=== PATIENT | male | born 1970 | race African-American/Black ===

== ENCOUNTER 2017-10-31 16:43 | Emergency (ER) | payer OTHER ==
[2017-10-31 16:49] VITALS: BP 122/71
[2017-10-31] MEDS ORDERED: clonazePAM TAB(*) 1 MG PO ONE (17:47)
[2017-10-31] MEDS ORDERED: clonazePAM TAB(*) 0.5 MG PO ONE (18:00)
--- NOTE | 2017-10-31 18:14 | ED ---
Dayday Landry Natalie, scribed for Jose Hunt MD on 10/31/17 at 1753 . Medical Screening - HPI Summary HPI Summary: The pt is a 47 y/o M presenting to the ED c/o needing Klonopin refill starting today. The patient usually takes 1 mg once a night. He was prescribed the medication by a doctor in [place], where he used to live up until September. Pt additionally c/o insomnia when he's not able to take his medication. He last took the medication last night. He does not smoke. He doesnt have a hx of HTN or diabetes. - History of Current Complaint Chief Complaint: EDGeneral Stated Complaint: MED REFILL Time Seen by Provider: 10/31/17 17:36 Onset/Duration: Started Hours Ago - starting last night Severity: mild Associated Signs and Symptoms: Other - insomnia PMH/Surg Hx/FS Hx/Imm Hx Previously Healthy: No Endocrine/Hematology History: Denies: Hx Diabetes Cardiovascular History: Denies: Hx Hypertension Opthamlomology History: Denies: Hx Legally Blind EENT History: Denies: Hx Deafness Psychiatric History: Reports: Hx Anxiety Infectious Disease History: No Infectious Disease History: Denies: Traveled Outside the [place] in Last 30 Days - Family History Known Family History: Positive: Diabetes Negative: Hypertension Review of Systems Negative: Fever Neurological: Other - insomnia All Other Systems Reviewed And Are Negative: Yes Physical Exam Triage Information Reviewed: Yes Vital Signs On Initial Exam: Initial Vitals Temp Pulse Resp BP Pulse Ox 98.7 F 64 16 122/71 100 10/31/17 16:46 10/31/17 16:46 10/31/17 16:46 10/31/17 16:46 10/31/17 16:46 Vital Signs Reviewed: Yes Appearance: Positive: Well-Appearing, No Pain Distress Skin: Positive: Warm, Skin Color Reflects Adequate Perfusion, Dry Head/Face: Positive: Normal Head/Face Inspection Eyes: Positive: EOMI, ELIO ENT: Positive: Normal ENT inspection Neck: Positive: Supple, Nontender Respiratory/Lung Sounds: Positive: Clear to Auscultation, Breath Sounds Present Cardiovascular: Positive: RRR, Pulses are Symmetrical in both Upper and Lower Extremities Abdomen Description: Positive: Nontender, Soft Bowel Sounds: Positive: Present Musculoskeletal: Positive: Normal, Strength/ROM Intact Neurological: Positive: Normal, Sensory/Motor Intact, Alert, Oriented to Person Place, Time Diagnostics - Vital Signs Vital Signs Temp Pulse Resp BP Pulse Ox 10/31/17 16:46 98.7 F 64 16 122/71 100 - Laboratory Lab Statement: Any lab studies that have been ordered have been reviewed, and results considered in the medical decision making process. Course/Dx - Course Course Of Treatment: pt on chronic benzo. Out of meds despite confirming he hasnt filled since August. Has been taking more lately (using at bedtime prn), but no evidence for withdrawl. Dosed here. Short course given after accessing [facility] to get him thru weekend. PMD referral service provided. - Diagnoses Provider Diagnoses: Depression, Anxiety, Medication refill Discharge - Discharge Plan Condition: Good Disposition: HOME Prescriptions: clonazePAM TAB(*) [KlonoPIN TAB(*)] 0.5 mg PO BEDTIME PRN #3 tab MDD 1 PRN Reason: Anxiety Referrals: [facility] [Outside] Additional Instructions: Call for a physician as soon as possible. You will need a primary care doctor to prescribe this medication after the weekend. Return if worse, new symptoms or other concerns as discussed. Medication cannot be filled out of the ER. The documentation as recorded by the Dayday cervantes Natalie accurately reflects the service I personally performed and the decisions made by me, Jose Hunt MD.
== END 2017-10-31 18:10 | disposition home or self-care (01) ==
LOC: ED 16:43
DX: F41.8 Other specified anxiety disorders (principal)
CPT/HCPCS: 99281; A9270-GY

== ENCOUNTER 2017-11-04 14:05 | Emergency (ER) | payer OTHER ==
[2017-11-04 16:24] VITALS: BP 105/61
--- NOTE | 2017-11-04 18:29 | ED ---
Medical Screening - HPI Summary HPI Summary: 47M presents for klonopin refill. He states he is setting up a primary here and that his first appointment is not till next is the earliest he can get in. He states that he is originally from [facility] and moved here in Sep. He is prescribed the medication for insomnia and states he has to take it every night. He has been on the medication for years. He denies any abdominal pain, n/v or other symptoms. He was seen here 3 days ago and given a 3 days course of the medication till he can see a primary. He states that he had been decreasing the amount he was taking between aug and sep so that it lasted longer. - History of Current Complaint Chief Complaint: EDPrescriptionNeeded Stated Complaint: MEDICATION REFILL Time Seen by Provider: 11/04/17 17:39 PMH/Surg Hx/FS Hx/Imm Hx Endocrine/Hematology History: Denies: Hx Diabetes Cardiovascular History: Denies: Hx Hypertension Sensory History: Denies: Hx Legally Blind, Hx Deafness Opthamlomology History: Denies: Hx Legally Blind Psychiatric History: Reports: Hx Anxiety Infectious Disease History: No Infectious Disease History: Denies: Traveled Outside the US in Last 30 Days - Family History Known Family History: Positive: Diabetes Negative: Hypertension - Social History Alcohol Use: None Substance Use Type: Reports: None Smoking Status (MU): Never Smoked Tobacco Review of Systems Negative: Fever Negative: Chest Pain Negative: Shortness Of Breath All Other Systems Reviewed And Are Negative: Yes Physical Exam Triage Information Reviewed: Yes Vital Signs On Initial Exam: Initial Vitals Temp Pulse Resp BP Pulse Ox 98.6 F 62 20 116/64 99 11/04/17 14:12 11/04/17 14:12 11/04/17 14:12 11/04/17 14:12 11/04/17 14:12 Vital Signs Reviewed: Yes Appearance: Positive: Well-Appearing Skin: Positive: Warm, Dry Head/Face: Positive: Normal Head/Face Inspection Eyes: Positive: Normal, Conjunctiva Clear Respiratory/Lung Sounds: Positive: Clear to Auscultation, Breath Sounds Present Cardiovascular: Positive: Normal, RRR Musculoskeletal: Positive: Normal Neurological: Positive: Normal Psychiatric: Positive: Normal Diagnostics - Vital Signs Vital Signs Temp Pulse Resp BP Pulse Ox 11/04/17 16:15 98.9 F 56 20 105/61 100 11/04/17 14:12 98.6 F 62 20 116/64 99 - Laboratory Lab Statement: Any lab studies that have been ordered have been reviewed, and results considered in the medical decision making process. Course/Dx - Course Course Of Treatment: 47M presents for klonopin refill. He states he is setting up a primary here and that his first appointment is not till next is the earliest he can get in. He states that he is originally from [facility] and moved here in Sep. He is prescribed the medication for insomnia and states he has to take it every night. He has been on the medication for years. He denies any abdominal pain, n/v or other symptoms. He was seen here 3 days ago and given a 3 days course of the medication till he can see a primary. He states that he had been decreasing the amount he was taking between aug and sep so that it lasted longer. discussed with patient that the ER can not be used for fill chronic narcotic medication needs to be filled by a primary. due to patient being on medication for a long time will prescribe 6 days so get to the appointment. patient understand and agrees with plan. - Diagnoses Provider Diagnoses: Medication refill Discharge - Discharge Plan Condition: Good Disposition: HOME Prescriptions: clonazePAM TAB(*) [KlonoPIN TAB(*)] 0.5 mg PO BID PRN #6 tab MDD 2 PRN Reason: Anxiety Referrals: Lobito Fuller MD [Primary Care Provider] - Additional Instructions: Call daily to try and get appointment moved up. Note that this medication is a control substance and cannot be filled out of the ER. Return to ED if develop any new or worsening symptoms
== END 2017-11-04 19:13 | disposition home or self-care (01) ==
LOC: ED 14:05
DX: Z76.0 Encounter for issue of repeat prescription (principal)
CPT/HCPCS: 99282

== ENCOUNTER 2017-12-16 17:49 | Emergency (ER) | payer OTHER ==
[2017-12-16 18:04] VITALS: BP 106/65
--- NOTE | 2017-12-16 19:32 | ED ---
Throat Pain/Nasal Congestion - HPI Summary HPI Summary: Throat pain for 1 year---but for the past 3 days something has been different was seen at the [facility] and started on flonase yesterday without any change yet--reports the discomfort as a flaming feeling---and notes a lot of stomach acid - History of Current Complaint Chief Complaint: EDThroatPain Time Seen by Provider: 12/16/17 19:31 Hx Obtained From: Patient Onset/Duration: Gradual Onset, Worse Since - past 3 days Severity: Moderate Associated Signs And Symptoms: Positive: Nasal Discharge Cough: None Related History: Seasonal Allergies - Allergies/Home Medications Allergies/Adverse Reactions: Allergies Allergy/AdvReac Type Severity Reaction Status Date / Time No Known Allergies Allergy Verified 11/04/17 14:15 PMH/Surg Hx/FS Hx/Imm Hx Endocrine/Hematology History: Denies: Hx Diabetes Cardiovascular History: Denies: Hx Hypertension Sensory History: Denies: Hx Legally Blind, Hx Deafness Opthamlomology History: Denies: Hx Legally Blind Psychiatric History: Reports: Hx Anxiety - Cancer History Hx Hematologic Symptoms: No Hx Chemotherapy: No Hx Radiation Therapy: No Hx Palliative Cancer Treatment: No - Surgical History Hx Anesthesia Reactions: No - Immunization History Hx Pertussis Vaccination: No Infectious Disease History: No Infectious Disease History: Denies: Traveled Outside the [place] in Last 30 Days - Family History Known Family History: Positive: Diabetes Negative: Hypertension - Social History Occupation: Unemployed Lives: With Family Alcohol Use: None Substance Use Type: Reports: None Hx Tobacco Use: No Smoking Status (MU): Never Smoked Tobacco Review of Systems Constitutional: Negative Eyes: Negative Positive: Sore Throat, Nasal Discharge Cardiovascular: Negative Respiratory: Negative Gastrointestinal: Other Positive: Other - acid reflux Genitourinary: Negative Musculoskeletal: Negative Skin: Negative Neurological: Negative Psychological: Normal All Other Systems Reviewed And Are Negative: Yes Physical Exam Triage Information Reviewed: Yes Vital Signs On Initial Exam: Initial Vitals Temp Pulse Resp BP Pulse Ox 98.5 F 66 16 106/65 100 12/16/17 18:00 12/16/17 18:00 12/16/17 18:00 12/16/17 18:00 12/16/17 18:00 Vital Signs Reviewed: No Appearance: Positive: Well-Appearing, No Pain Distress, Well-Nourished Skin: Positive: Warm, Skin Color Reflects Adequate Perfusion, Dry Head/Face: Positive: Normal Head/Face Inspection Eyes: Positive: Normal, EOMI, ELIO, Conjunctiva Clear ENT: Positive: Normal ENT inspection, Hearing grossly normal, Pharynx normal, Nasal congestion, Nasal drainage, TMs normal, Uvula midline. Negative: Tonsillar swelling, Tonsillar exudate, Trismus, Muffled voice, Hoarse voice, Dental tenderness, Sinus tenderness Neck: Positive: Supple, Nontender, No Lymphadenopathy Respiratory/Lung Sounds: Positive: Clear to Auscultation, Breath Sounds Present. Negative: Unable to speak in full sentences Cardiovascular: Positive: Normal, RRR, Pulses are Symmetrical in both Upper and Lower Extremities, S1, S2 Abdomen Description: Positive: Nontender, No Organomegaly, Soft. Negative: CVA Tenderness (R), CVA Tenderness (L) Bowel Sounds: Positive: Present Musculoskeletal: Positive: Normal, Strength/ROM Intact Neurological: Positive: Normal, Sensory/Motor Intact, Alert, Oriented to Person Place, Time, CN Intact II-III Psychiatric: Positive: Normal, Affect/Mood Appropriate AVPU Assessment: Alert - [place] Coma Scale Best Eye Response: 4 - Spontaneous Best Motor Response: 6 - Obeys Commands Best Verbal Response: 5 - Oriented Coma Scale Total: 15 Diagnostics - Vital Signs Vital Signs Temp Pulse Resp BP Pulse Ox 12/16/17 18:00 98.5 F 66 16 106/65 100 - Laboratory Lab Statement: Any lab studies that have been ordered have been reviewed, and results considered in the medical decision making process. - Radiology No standard instances Xray Interpretation: Positive (See Comments) - mild degenerative changes in cervical spine Radiology Interpretation Completed By: Radiologist EENT Course/Dx - Course Assessment/Plan: soft diet,, prilosec follow with pcp, return for worsening symptoms - Diagnoses Provider Diagnoses: GERD (gastroesophageal reflux disease) Discharge - Discharge Plan Condition: Stable Disposition: HOME Prescriptions: Omeprazole CAP* [Prilosec CAP* 20 MG] 20 mg PO DAILY #30 cap. Patient Education Materials: Diet for Stomach Ulcers and Gastritis (ED), Gastroesophageal Reflux Disease (ED), Esophageal Spasm (ED) Referrals: Lobito Fuller MD [Primary Care Provider] - 5 Days
[2017-12-16] MEDS ORDERED: Al Hydrox/Mg Hydrox/Simet LIQ* 30 ML UDC PO ONE (19:45)
[2017-12-16] MEDS ORDERED: Lidocaine 2% VISCOUS* 15 ML UDC PO ONE (19:45)
--- NOTE | 2017-12-16 22:15 | RAD ---
Indication: Sore throat Comparison: None. Technique: AP and lateral views of the neck with soft tissue technique. Report: Unremarkable soft tissue contours. Pharyngeal, laryngeal, and tracheal air columns are normal in contour. The epiglottis is normal. The cervical spine and prevertebral soft tissues are normal. Degenerative change of the cervical spine includes shortening of the C5 vertebral body and narrowing of the C5/C6 intervertebral disc space. IMPRESSION: Degenerative change of the cervical spine without radiographically apparent acute soft tissue abnormality. If the patient's symptoms persist, follow-up imaging is recommended.
== END 2017-12-16 22:39 | disposition home or self-care (01) ==
LOC: ED 17:49
DX: K21.9 Gastro-esophageal reflux disease without esophagitis (principal)
CPT/HCPCS: 70360; 87651; 99282; A9270-GY

== ENCOUNTER 2017-12-24 14:42 | Emergency (ER) | payer OTHER ==
[2017-12-24 14:48] VITALS: BP 100/69
--- NOTE | 2017-12-24 15:52 | ED ---
Phyllis Landry Julia, scribed for Sebastian Donohue on 12/24/17 at 1503 . Respiratory - HPI Summary HPI Summary: This patient is a 47 year old M presenting to [facility] with a chief complaint of gradually worsening cough and fluid build-up for the past two weeks. Patient denies coughing blood, abdominal pain, chest pain, and SOB. Symptoms unchanged by exertion. He states he has been spitting clear phlegm. - History of Current Complaint Chief Complaint: EDGeneral Stated Complaint: COUGH Time Seen by Provider: 12/24/17 14:56 Hx Obtained From: Patient Onset/Duration: Lasting Weeks, Still Present Timing: Constant Pain Intensity: 0 Character: Cough (Productive) Sputum Amount: Copious - spitting up Sputum Color: White Aggravating Factor(s): Nothing Alleviating Factor(s): Nothing - Allergy/Home Medications Allergies/Adverse Reactions: Allergies Allergy/AdvReac Type Severity Reaction Status Date / Time No Known Allergies Allergy Verified 11/04/17 14:15 PMH/Surg Hx/FS Hx/Imm Hx Endocrine/Hematology History: Denies: Hx Diabetes Cardiovascular History: Denies: Hx Hypertension Musculoskeletal History: Reports: Hx Arthritis Sensory History: Denies: Hx Legally Blind, Hx Deafness Opthamlomology History: Denies: Hx Legally Blind Psychiatric History: Reports: Hx Anxiety - Cancer History Hx Hematologic Symptoms: No Hx Chemotherapy: No Hx Radiation Therapy: No Hx Palliative Cancer Treatment: No - Surgical History Hx Anesthesia Reactions: No Infectious Disease History: No Infectious Disease History: Denies: Traveled Outside the [place] in Last 30 Days - Family History Known Family History: Positive: Diabetes Negative: Hypertension - Social History Alcohol Use: None Substance Use Type: Reports: None Hx Tobacco Use: No Smoking Status (MU): Never Smoked Tobacco Review of Systems Negative: Chest Pain Respiratory: Negative - cough with blood, Other - spitting phlegm Positive: Cough. Negative: Shortness Of Breath Negative: Abdominal Pain All Other Systems Reviewed And Are Negative: Yes Physical Exam - Summary Physical Exam Summary: Appearance: Well appearing, no pain distress Skin: warm, dry, reflects adequate perfusion Head/face: normal Eyes: EOMI, ELIO ENT: normal Neck: supple, non-tender Respiratory: CTA, breath sounds present Cardiovascular: RRR, pulses symmetrical Abdomen: non-tender, soft Bowel: present Musculoskeletal: normal, strength/ROM intact Neuro: normal, sensory motor intact, A&Ox3 Triage Information Reviewed: Yes Vital Signs On Initial Exam: Initial Vitals Temp Pulse Resp BP Pulse Ox 98.8 F 69 18 100/69 97 12/24/17 14:45 12/24/17 14:45 12/24/17 14:45 12/24/17 14:45 12/24/17 14:45 Vital Signs Reviewed: Yes Diagnostics - Vital Signs Vital Signs Temp Pulse Resp BP Pulse Ox 12/24/17 14:45 98.8 F 69 18 100/69 97 - Laboratory Lab Statement: Any lab studies that have been ordered have been reviewed, and results considered in the medical decision making process. Disposition - Course Course Of Treatment: Patient presents with cough and increaed phlegm production for the past two weeks. Patient denies chest pain, SOB, and coughing blood. Patient is given a prescription for Amoxycillin. - Diagnoses Provider Diagnoses: Pharyngitis Discharge - Discharge Plan Condition: Stable Disposition: HOME Prescriptions: Amoxicillin PO (*) [Amoxicillin 875 MG (*)] 875 mg PO BID #20 tab Patient Education Materials: Pharyngitis (ED) Referrals: Preston Holland MD [Medical Doctor] - If Needed Additional Instructions: Follow up with an ENT (ears, nose, throat) physician if your symptoms do not improve. A physician's information is provided if needed. The documentation as recorded by the Phyllis cervantes Julia accurately reflects the service I personally performed and the decisions made by , Sebastian Donohue.
== END 2017-12-24 15:43 | disposition home or self-care (01) ==
LOC: ED 14:42
DX: J02.9 Acute pharyngitis, unspecified (principal); R05 Cough; M19.90 Unspecified osteoarthritis, unspecified site; F41.9 Anxiety disorder, unspecified
CPT/HCPCS: 99281

== ENCOUNTER 2017-12-26 13:29 | Emergency (ER) | payer OTHER ==
--- NOTE | 2017-12-26 15:30 | RAD ---
INDICATION: Cough and mucus, evaluate for pneumonia on the right side. COMPARISON: There are no prior studies available for comparison. TECHNIQUE: Dual-energy PA and lateral views of the chest were obtained. FINDINGS: The heart is within normal limits in size. Mediastinal and hilar contours appear within normal limits. The lungs are hyperinflated and clear. No pleural effusion is present. IMPRESSION: NO EVIDENCE FOR ACTIVE CARDIOPULMONARY DISEASE.
--- NOTE | 2017-12-26 15:39 | ED ---
Throat Pain/Nasal Congestion - HPI Summary HPI Summary: 47 male presents to ED with complaints of excessive mucus production that has been ongoing for the past week or so. Was seen a few days ago and given amoxicillin. Patient was worried since the congestion/phlegm worsened that it was a medication side effect. Patient denies any blood/hemoptysis. No fever/ chills or headache. Admits to having sinus complications in the past. Admits to nasal congestion. Was using flonase however stopped. Admits to productive cough. No PMHx. Recently also had soft tissue neck xray without findings. - History of Current Complaint Chief Complaint: EDGeneral Time Seen by Provider: 12/26/17 13:51 Hx Obtained From: Patient Onset/Duration: Gradual Onset, Lasting Weeks, Still Present, Worse Since Severity: Moderate Associated Signs And Symptoms: Positive: Dysphagia, Sinus Discomfort, Nasal Discharge Cough: Productive - Epiglottits Risk Factors Epiglottis Risk Factors: Negative - Allergies/Home Medications Allergies/Adverse Reactions: Allergies Allergy/AdvReac Type Severity Reaction Status Date / Time No Known Allergies Allergy Verified 12/26/17 13:37 PMH/Surg Hx/FS Hx/Imm Hx Endocrine/Hematology History: Denies: Hx Diabetes Cardiovascular History: Denies: Hx Hypertension Musculoskeletal History: Reports: Hx Arthritis Sensory History: Denies: Hx Legally Blind, Hx Deafness Opthamlomology History: Denies: Hx Legally Blind Psychiatric History: Reports: Hx Anxiety - Cancer History Hx Hematologic Symptoms: No Hx Chemotherapy: No Hx Radiation Therapy: No Hx Palliative Cancer Treatment: No - Surgical History Hx Anesthesia Reactions: No - Immunization History Immunizations Up to Date: Yes Infectious Disease History: No Infectious Disease History: Denies: Traveled Outside the [place] in Last 30 Days - Family History Known Family History: Positive: Diabetes Negative: Hypertension - Social History Alcohol Use: None Substance Use Type: Reports: None Hx Tobacco Use: No Smoking Status (MU): Never Smoked Tobacco Review of Systems Constitutional: Negative Positive: Sore Throat, Nasal Discharge Cardiovascular: Negative Positive: Cough, Other - mucus production Gastrointestinal: Negative All Other Systems Reviewed And Are Negative: Yes Physical Exam Triage Information Reviewed: Yes Vital Signs On Initial Exam: Initial Vitals Temp Pulse Resp BP Pulse Ox 98.7 F 67 20 107/59 100 12/26/17 13:34 12/26/17 13:34 12/26/17 13:34 02/23/18 13:34 12/26/17 13:34 Vital Signs Reviewed: Yes Appearance: Positive: Well-Appearing, No Pain Distress, Well-Nourished Skin: Positive: Warm, Skin Color Reflects Adequate Perfusion, Dry Head/Face: Positive: Normal Head/Face Inspection Eyes: Positive: Normal, Conjunctiva Clear ENT: Positive: Hearing grossly normal, Pharynx normal, Nasal congestion, TMs normal - with some serous effusion bl tm, Uvula midline - ariway patent no sign of peritonsillar abscess. Negative: Nasal drainage, Tonsillar swelling, Tonsillar exudate Dental: Negative: Cervical Lymphadenopathy Neck: Positive: Supple, Nontender, No Lymphadenopathy Respiratory/Lung Sounds: Positive: Clear to Auscultation, Breath Sounds Present. Negative: Rales, Rhonchi, Wheezes Cardiovascular: Positive: Normal, RRR, Pulses are Symmetrical in both Upper and Lower Extremities. Negative: Murmur, Rub, Leg Edema Left, Leg Edema Right Abdomen Description: Positive: Nontender, Soft Bowel Sounds: Positive: Present Musculoskeletal: Positive: Normal, Strength/ROM Intact Neurological: Positive: Normal, Sensory/Motor Intact, Alert, Oriented to Person Place, Time Diagnostics - Vital Signs Vital Signs Temp Pulse Resp BP Pulse Ox 12/26/17 13:34 98.7 F 67 20 107/59 100 - Laboratory Lab Statement: Any lab studies that have been ordered have been reviewed, and results considered in the medical decision making process. - Radiology chest Xray Interpretation: No Acute Changes - NO EVIDENCE FOR ACTIVE CARDIOPULMONARY DISEASE. Radiology Interpretation Completed By: Radiologist Re-Evaluation - Re-Evaluation First Eval Re-Evaluation Time: 15:15 Change: Unchanged - feeling ok, updated on chest xray results. educated on current plan and patient agrees/understands EENT Course/Dx - Course Course Of Treatment: chest xray obtained and negative. appears to be suffering from URI that moved from sinuses into chest. encouraged use of decongestant, flonase and saline rinses. also to try antihistamine. no other concerns at this time. follow up with pcp. aware of worsening signs and symptoms to watch out for and return if occur. normal vitals. normal physical exam. - Differential Diagnoses Differential Diagnoses: Pharyngitis, Sinusitis, URI/Bronchitis - Diagnoses Provider Diagnoses: URI (upper respiratory infection) Discharge - Discharge Plan Condition: Stable Disposition: HOME Patient Education Materials: Upper Respiratory Infection (ED) Referrals: Lobito Fuller MD [Primary Care Provider] - Additional Instructions: continue prescribed dose of amoxicillin. recommend take mucinex and claritin both sold over the counter to help with congestion. increase fluid intake and get plenty of rest. Flonase for nasal congestion. Hot showers and warm compresses. Nasal saline rinses. Follow up with PCP.
[2017-12-26 16:11] VITALS: BP 97/59
== END 2017-12-26 16:10 | disposition home or self-care (01) ==
LOC: ED 13:29
DX: J06.9 Acute upper respiratory infection, unspecified (principal)
CPT/HCPCS: 71046; 99281

== ENCOUNTER 2017-12-29 00:45 | Emergency (ER) | payer OTHER ==
[2017-12-29] MEDS ORDERED: Fluticasone NASAL SPRAY 50MCG* 16 gm SPRAY BTL BOTH NARES SCH (02:00)
[2017-12-29 02:02] VITALS: BP 0/0
--- NOTE | 2017-12-29 02:03 | ED ---
Catherien Landry Edward, scribed for Akilah Herrera MD on 12/29/17 at 0103 . Throat Pain/Nasal Congestion - HPI Summary HPI Summary: 47 y/o male presents to the ED c/o fluid backed up in his throat for around 1 month. Pt states he has trouble sleeping because of it. Sx not aggravated or alleviate by anything. Pt takes 0.5 mg Klonopin daily. Associated sx: rhinorrhea. - History of Current Complaint Chief Complaint: EDThroatPain Time Seen by Provider: 12/29/17 01:00 Hx Obtained From: Patient Onset/Duration: Lasting Weeks, Still Present Associated Signs And Symptoms: Positive: Nasal Discharge - Allergies/Home Medications Allergies/Adverse Reactions: Allergies Allergy/AdvReac Type Severity Reaction Status Date / Time No Known Allergies Allergy Verified 12/26/17 13:37 PMH/Surg Hx/FS Hx/Imm Hx Previously Healthy: No Endocrine/Hematology History: Denies: Hx Diabetes Cardiovascular History: Denies: Hx Hypertension Musculoskeletal History: Reports: Hx Arthritis Sensory History: Denies: Hx Legally Blind, Hx Deafness Opthamlomology History: Denies: Hx Legally Blind Psychiatric History: Reports: Hx Anxiety - Cancer History Hx Hematologic Symptoms: No Hx Chemotherapy: No Hx Radiation Therapy: No Hx Palliative Cancer Treatment: No - Surgical History Hx Anesthesia Reactions: No Infectious Disease History: No Infectious Disease History: Denies: Traveled Outside the [place] in Last 30 Days - Family History Known Family History: Positive: Diabetes Negative: Hypertension - Social History Alcohol Use: None Substance Use Type: Reports: None Hx Tobacco Use: No Smoking Status (MU): Never Smoked Tobacco Review of Systems Constitutional: Negative Eyes: Negative ENT: Other - "fluid backed up in his throat" Positive: Nasal Discharge Cardiovascular: Negative Respiratory: Negative Gastrointestinal: Negative Genitourinary: Negative Musculoskeletal: Negative Skin: Negative Neurological: Negative Psychological: Normal All Other Systems Reviewed And Are Negative: Yes Physical Exam - Summary Physical Exam Summary: VITAL SIGNS: Reviewed. GENERAL: Patient is a well-developed and nourished male who is lying comfortable in the stretcher. Patient is not in any acute respiratory distress. HEAD AND FACE: No signs of trauma. No ecchymosis, hematomas or skull depressions. No sinus tenderness. EYES: PERRLA, EOMI x 2, No injected conjunctiva, no nystagmus. EARS: Hearing grossly intact. Ear canals and tympanic membranes are within normal limits. MOUTH: Oropharynx within normal limits. NECK: Supple, trachea is midline, no adenopathy, no JVD, no carotid bruit, no c- spine tenderness, neck with full ROM. CHEST: Symmetric, no tenderness at palpation LUNGS: Clear to auscultation bilaterally. No wheezing or crackles. CVS: Regular rate and rhythm, S1 and S2 present, no murmurs or gallops appreciated. ABDOMEN: Soft, non-tender. No signs of distention. No rebound no guarding, and no masses palpated. Bowel sounds are normal. EXTREMITIES: FROM in all major joints, no edema, no cyanosis or clubbing. NEURO: Alert and oriented x 3. No acute neurological deficits. Speech is normal and follows commands. SKIN: Dry and warm Triage Information Reviewed: Yes Vital Signs On Initial Exam: Initial Vitals Temp Pulse Resp BP Pulse Ox 97.4 F 55 14 87/53 100 12/29/17 00:48 12/29/17 00:48 12/29/17 00:48 12/29/17 00:48 12/29/17 00:48 Vital Signs Reviewed: Yes Diagnostics - Vital Signs Vital Signs Temp Pulse Resp BP Pulse Ox 12/29/17 00:48 97.4 F 55 14 87/53 100 - Laboratory Lab Statement: Any lab studies that have been ordered have been reviewed, and results considered in the medical decision making process. Re-Evaluation - Re-Evaluation 1 Re-Evaluation Time: 01:55 EENT Course/Dx - Course Assessment/Plan: Pt will be d/c home with f/u with ENT. - Diagnoses Provider Diagnoses: Postnasal drip, Rhinitis Discharge - Discharge Plan Condition: Stable Disposition: HOME Patient Education Materials: Fluticasone (Into the nose), Postnasal Drip (DC) Referrals: Chema Linda MD [Medical Doctor] - 4 Days (PLEASE F/U IN 3-5 DAYS) Additional Instructions: PLEASE USE FLONASE NASAL SPRAY TWICE A DAY RETURN TO THE ED FOR THE RETURN OR WORSENING OF SYMPTOMS The documentation as recorded by the Catherine cervantes Edward accurately reflects the service I personally performed and the decisions made by Javier ivan Abdul, MD.
== END 2017-12-29 02:02 | disposition home or self-care (01) ==
LOC: ED 00:45
DX: R09.82 Postnasal drip (principal); J31.0 Chronic rhinitis
CPT/HCPCS: 99281

== ENCOUNTER 2018-03-21 15:35 | Emergency (ER) | payer OTHER ==
[2018-03-21 17:09] VITALS: BP 128/88
--- NOTE | 2018-03-21 17:10 | ED ---
Throat Pain/Nasal Congestion - HPI Summary HPI Summary: patient is a 47-year-old male with no significant PMH who presents to the ED for the fourth time over the 3 months with same complaint of postnasal drip and mucus in the throat. He states when he is able to cough up the mucus, it is clear. He denies any fevers, sweats, chills. He has been given Sudafed, omeprazole, Flonase, amoxicillin and Claritin. He states he does not really want to be on medication so after a few days he stops taking them because they "don't work." He has also had a neck scan and has been seen by ENT with no findings. He is a nonsmoker. - History of Current Complaint Chief Complaint: EDUpperRespComplaint Time Seen by Provider: 03/21/18 15:47 Hx Obtained From: Patient, Family/Rail Bender Onset/Duration: Gradual Onset Severity: Moderate Associated Signs And Symptoms: Positive: Dysphagia - Epiglottits Risk Factors Epiglottis Risk Factors: Negative - Allergies/Home Medications Allergies/Adverse Reactions: Allergies Allergy/AdvReac Type Severity Reaction Status Date / Time No Known Allergies Allergy Verified 03/21/18 15:40 PMH/Surg Hx/FS Hx/Imm Hx Previously Healthy: Yes Endocrine/Hematology History: Denies: Hx Diabetes Cardiovascular History: Denies: Hx Hypertension Musculoskeletal History: Reports: Hx Arthritis Sensory History: Denies: Hx Legally Blind, Hx Deafness Opthamlomology History: Denies: Hx Legally Blind Psychiatric History: Reports: Hx Anxiety - Cancer History Hx Hematologic Symptoms: No Hx Chemotherapy: No Hx Radiation Therapy: No Hx Palliative Cancer Treatment: No - Surgical History Hx Anesthesia Reactions: No - Immunization History Hx Pertussis Vaccination: No Immunizations Up to Date: Unable to Obtain/Confirm Infectious Disease History: No Infectious Disease History: Denies: Traveled Outside the [place] in Last 30 Days - Family History Known Family History: Positive: Diabetes Negative: Hypertension - Social History Occupation: Employed Full-time Lives: Alone Alcohol Use: None Hx Substance Use: No Substance Use Type: Reports: None Hx Tobacco Use: No Smoking Status (MU): Never Smoked Tobacco Review of Systems Constitutional: Negative Negative: Fever, Chills, Fatigue, Skin Diaphoresis Negative: Photophobia, Blurred Vision Positive: Other - post nasal drip and mucous in the throat. Negative: Dental Pain, Sore Throat Cardiovascular: Negative Respiratory: Negative Skin: Negative Neurological: Negative Psychological: Normal All Other Systems Reviewed And Are Negative: Yes Physical Exam Triage Information Reviewed: Yes Vital Signs On Initial Exam: Initial Vitals Temp Pulse Resp BP Pulse Ox 97.7 F 52 18 85/50 98 03/21/18 15:40 03/21/18 15:40 03/21/18 15:40 03/21/18 15:40 03/21/18 15:40 Vital Signs Reviewed: Yes Appearance: Positive: Well-Appearing, Well-Nourished Skin: Positive: Warm, Skin Color Reflects Adequate Perfusion Head/Face: Positive: Normal Head/Face Inspection Eyes: Positive: EOMI, ELIO, Conjunctiva Clear Neck: Positive: Supple, No Lymphadenopathy Respiratory/Lung Sounds: Positive: Clear to Auscultation, Breath Sounds Present Cardiovascular: Positive: RRR, Pulses are Symmetrical in both Upper and Lower Extremities Musculoskeletal: Positive: Strength/ROM Intact Neurological: Positive: Speech Normal Psychiatric: Positive: Affect/Mood Appropriate Diagnostics - Vital Signs Vital Signs Temp Pulse Resp BP Pulse Ox 03/21/18 15:53 50 94/52 100 03/21/18 15:52 53 100 03/21/18 15:40 97.7 F 52 18 85/50 98 - Laboratory Lab Statement: Any lab studies that have been ordered have been reviewed, and results considered in the medical decision making process. EENT Course/Dx - Course Course Of Treatment: Discussed at length with patient regarding to take medications to dry up the mucus production and postnasal drip. He states he will try this approach and will follow back up with ENT. He is visibly upset about not having other options, however I have discussed other options would be through the ENT. - Diagnoses Provider Diagnoses: Post-nasal drip Discharge - Sign-Out/Discharge Documenting (check all that apply): Discharge/Admit/Transfer - Discharge Plan Condition: Stable Disposition: HOME Prescriptions: Fexofenadine/Pseudoephedrine [Fexofenadine-Pse ER 60-120 Tab] 1 each PO BID #30 tab.er.[id number] MDD 2 Omeprazole 40 mg PO DAILY #30 capsule.dr Patient Education Materials: Postnasal Drip (DC) Referrals: Chema Linda MD [Medical Doctor] - Lobito Fuller MD [Primary Care Provider] - Additional Instructions: Take medications as directed Please follow-up with Dr. Alexei Yepez Disposition and Condition Condition: STABLE Disposition: HOME
== END 2018-03-21 17:07 | disposition home or self-care (01) ==
LOC: ED 15:35
DX: R09.82 Postnasal drip (principal)
CPT/HCPCS: 99282